=== PATIENT | male | born 1940 | race Caucasian/White ===

== ENCOUNTER → 2016-11-11 | Outpatient (CLI) | payer MEDICARE, OTHER ==
[~2016-11-11] MED LIST: ALDACTONE50 MG PO; AMPICILLIN500 MG PO; ASPIRIN E.C. 8181 MG PEG; ASPIRIN E.C. 8181 MG PO; ATIVAN0.5 MG PO; CARDENE 30MG CA30 M1 PEG; CARDENE 30MG CA30 MG PO; CARDENE PO; CARDIZEM CD 24240 MG PO; CELEXA40 MG PO; COLACE 100100 MG/CAP PO; DEBROX OT; DIFLUCAN100 MG PO; DULCOLAX10 MG RC; DYNAPEN500 MG PO; EXELON PAT4.6 MG/24 TD; FLAGYL500 MG PEG; FLOMAX 0.40.4 MG/CAP PO; KEPPRA100 MG/ML PEG; KEPPRA500 MG PO; LASIX 20MG TABL20 MG PO; LEVAQUIN 250MG250 MG PEG; LISINOPRIL40 MG PO; LOPRESSOR100 MG PEG; LOVENOX40 MG/0.4 SC; MAG-OX 400400 MG/TAB PO; METOPROLOL100 MG PO; METOPROLOL50 MG PO; MILK OF MA400 MG/51 PO; MIRALAX 17GM PK1 PKT PO; MULTI VITAMINS1 TAB PO; MULTI-VITAMIN1 CTB PO; MYLANTA 150 ML150 M1 PO; NEXIUM 40MG40 MG PEG; NEXIUM ORA40 MG/Pack PEG; NO HOME MEDICATIONS; NORCO 325 MG-51 TAB PO; PRILOSEC 20MG20 MG PO; PROSCAR 5MG5 MG PO; PYRIDIUM 100MG100 MG PO; RISPERDAL 0.20.25 MG PO; SILVADENE 400G400 GM TP; THERAGRAN1 TA1 PO; TOPROL XL 50MG50 MG PO; TYLENOL 325MG325 MG PO; TYLENOL ELIX32 MG/ML PO; UNABLE; VITAMIN D1000 IU PO; ZESTRIL20 MG PEG; [UNRECOGNIZED DRUG - OTHER]
[2016-11-11 10:03] LABS: CALCIUM 9.4 mg/dL (8.4-10.2); CREATININE, serum 1.32 mg/dL (0.66-1.25); POTASSIUM 4.2 mmol/L (3.4-5.0)
== END ==
LOC: COL.VAS 08:51
PROVIDERS: Internal Medicine
DX: I31.3 Pericardial effusion (noninflammatory) (principal); R94.39 Abnormal result of other cardiovascular function study; R09.02 Hypoxemia

== ENCOUNTER 2019-03-12 11:27 | Day surgery (SDC) | payer MEDICARE ==
[~2019-03-12] VITALS: Ht 172.7 cm; Wt 99.3 kg
[2019-03-12 12:29] VITALS: BP 158/78; PULSE 81; TEMP 98.4
[2019-03-12] MEDS ORDERED: CARTIA XT240 MG PO (12:47)
[2019-03-12] MEDS ORDERED: LASIX 20MG TABL20 MG PO (12:48)
[2019-03-12] MEDS ORDERED: ZYLOPRIM 300MG300 MG PO (12:49)
--- NOTE | 2019-03-12 12:50 | NUR ---
TO RM AT 8 AT 1153- CALL LIGHT IN REACH AT BEDSIDE
[2019-03-12 16:49] VITALS: BP 139/59; PULSE 88; TEMP 97.2
--- NOTE | 2019-03-12 18:09 | NUR ---
Patient agitated, standing at bedside nude attempting to pull cárdenas catheter out. Attempted to re inforce to patient need for catheter and need to remain in hospital. Patient refuses, states he is leaving and to take catheter out. Explained need for cárdenas to remain. Patient states "he promised me he wouldn't leave a catheter in and he did, he lied to me, I'm leaving". Dr Green notified of above, as well as Dr Griffiths. Cárdenas catheter and INT discontinued. Patient left [facility] at 1810 with .
[2019-03-12 18:14] VITALS: BP 1139/59; PULSE 87; TEMP 97.5
== END 2019-03-12 18:10 | disposition left against medical advice (07) ==
LOC: SDCO 11:27
DX: N40.1 Benign prostatic hyperplasia with lower urinary tract symptoms (principal); N39.498 Other specified urinary incontinence; R35.0 Frequency of micturition; R35.1 Nocturia; R33.8 Other retention of urine; R09.02 Hypoxemia; G47.33 Obstructive sleep apnea (adult) (pediatric); I10 Essential (primary) hypertension; K21.9 Gastro-esophageal reflux disease without esophagitis; Z86.73 Personal history of transient ischemic attack (TIA), and cerebral infarction without residual deficits; Z85.828 Personal history of other malignant neoplasm of skin; Z98.52 Vasectomy status; Z88.2 Allergy status to sulfonamides; Z83.3 Family history of diabetes mellitus; Z82.49 Family history of ischemic heart disease and other diseases of the circulatory system; Z86.718 Personal history of other venous thrombosis and embolism; M10.9 Gout, unspecified; J90 Pleural effusion, not elsewhere classified; I47.1 Supraventricular tachycardia; Z82.61 Family history of arthritis; Z79.82 Long term (current) use of aspirin; F03.90 Unspecified dementia, unspecified severity, without behavioral disturbance, psychotic disturbance, mood disturbance, and anxiety; M19.90 Unspecified osteoarthritis, unspecified site
CPT/HCPCS: 99223; C1769; J0690; J2175; J2704; J3010; J7030

== ENCOUNTER → 2020-11-28 | Outpatient (CLI) | payer MEDICARE ==
[~2020-11-28] MED LIST changes: +ASPIRIN 81M81 MG/TA2 PO; +CARTIA XT240 MG PO; +DIAMOX 250MG250 MG PO; +ZYLOPRIM 300MG300 MG PO
[2020-11-28 12:03] LABS: ALBUMIN 3.7 gm/dL (3.5-5.0); BILIRUBIN,TOTAL 0.9 mg/dL (0.0-1.0); CALCIUM 8.8 mg/dL (8.4-10.2); CREATININE, serum 2.17 (0.66-1.25); TOTAL PROTEIN 7.1 gm/dL (6.4-8.2)
[2020-11-28 12:11] LABS: BASO # 0.1 (0.0-0.2); BASO % 0.5 % (0.0-2.0); EOS # 0.1 (0.0-0.7); GRAN # 9.1 (1.4-6.5); GRAN % 80.3 % (42.2-75.2); HEMATOCRIT 45.5 % (42.0-52.0); HEMOGLOBIN 15.4 g/dl (13.5-18.0); LYMPH # 1.1 (1.2-3.4); LYMPH % 9.2 % (20.0-51.0); MEAN CELL VOLUME 96 fl (80.0-100.0); MEAN CORPUSCULAR HEMOGLOBIN 33 pg (27.0-31.0); MEAN CORPUSCULAR HGB CONC 34 g/dl (33.0-37.0); MEAN PLATELET VOLUME 9.7 fl (7.4-10.4); MONO % 8.6 % (1.7-9.3); PLATELET COUNT 216 K/mm3 (130-400); RED BLOOD COUNT 4.74 M/mm3 (4.20-5.60); REDCELL DISTRIBUTION WIDTH-CV 13.2 % (11.5-14.5)
[2020-11-28 12:14] LABS: TROPONIN-I 0.014 ng/mL (0.000-0.035)
[2020-11-28 12:20] LABS: PH 7 (5-8); SQUAMOUS EPITHELIAL 0-2 /hpf; URINE APPEARANCE Turbid; URINE BACTERIA Moderate /hpf; URINE BILIRUBIN Negative (NEGATIVE); URINE BLOOD 1+ (NEGATIVE); URINE COLOR Yellow; URINE GLUCOSE Negative (NEGATIVE); URINE KETONE Negative (NEGATIVE); URINE LEUKOCYTE ESTERASE 3+ (NEGATIVE); URINE NITRATE Negative (NEGATIVE); URINE PROTEIN(semi-quant) 2+ (NEGATIVE); URINE UROBILINOGEN Negative (NEGATIVE)
[2020-11-29 13:45] LABS: COLLECTION METHOD CLEAN CATCH
== END ==
LOC: COL.RAD 10:36
PROVIDERS: Nurse Practitioner Family
DX: I51.7 Cardiomegaly (principal)

== ENCOUNTER → 2021-01-04 | Outpatient (CLI) | payer MEDICARE ==
[~2021-01-04] MED LIST changes: +LASIX 40MG TABL40 MG PO; +ONE-A-DAY ESSE1 EACH PO; +VITAMIN D31000 I1 PO
== END ==
LOC: COL.VAS 12:14
DX: N18.32 Chronic kidney disease, stage 3b (principal); N40.0 Benign prostatic hyperplasia without lower urinary tract symptoms; I31.3 Pericardial effusion (noninflammatory); I36.1 Nonrheumatic tricuspid (valve) insufficiency; I50.9 Heart failure, unspecified

== ENCOUNTER 2021-02-21 15:30 | Outpatient (RCR) | payer MEDICARE ==
[~2021-02-21 15:30] MED LIST changes: -LASIX 40MG TABL40 MG PO; -ONE-A-DAY ESSE1 EACH PO; -VITAMIN D31000 I1 PO
[2021-03-01] MEDS ORDERED: ONE-A-DAY ESSE1 EACH PO (14:17)
[2021-03-01] MEDS ORDERED: VITAMIN D31000 I1 PO (14:18)
[2021-03-01] MEDS ORDERED: LASIX 40MG TABL40 MG PO (14:19)
== END 2021-03-05 16:13 | disposition home or self-care (01) ==
LOC: MKS.ESL.PT 15:30
DX: I61.9 Nontraumatic intracerebral hemorrhage, unspecified (principal); I89.0 Lymphedema, not elsewhere classified

== ENCOUNTER 2021-03-01 13:19 | Day surgery (SDC) | payer MEDICARE ==
[~2021-03-01] VITALS: Ht 170.2 cm; Wt 88.7 kg
[2021-03-01] VITALS (9 sets, daily range): BP systolic 132–185; BP diastolic 50–76; PULSE 71–99; TEMP 97.4–98.3
[2021-03-01] MEDS ORDERED: ONE-A-DAY ESSE1 EACH PO (14:17)
[2021-03-01] MEDS ORDERED: VITAMIN D31000 I1 PO (14:18)
[2021-03-01] MEDS ORDERED: LASIX 40MG TABL40 MG PO (14:19)
--- NOTE | 2021-03-01 14:21 | NUR ---
TO RM 7 AT 1326- CALL LIGHT IN REACH AT BEDSIDE.
--- NOTE | 2021-03-01 15:34 | NUR ---
WENT BACK TO WORK PLACED PILLOW UNDER PATIENT CALVES AND ELEVATED FOOT OF BED
--- NOTE | 2021-03-01 17:30 | NUR ---
Patient up from OR. Leslee is slow but answers questions appropriately. R weakness noted. Machuca to leg bag with blood tinged urine present. Edema to BLE +2 pitting. Post op fluids infusing to left forarm IV. Warm blankets provided at this time. Patient on 2L o2 via NC Oxygen between 88-92% at this time. Encouraged cough and deep breathing. Oxygen increases to 92 % with deep breath. Scrotal edema noted. Denies additional needs at this time.
--- NOTE | 2021-03-01 18:26 | NUR ---
Will report off to operations supervisor 2nd shift.
--- NOTE | 2021-03-01 20:00 | NUR ---
Patient is currently on 3 L of oxygen via nasal cannula and is between 90-94%. Called Dr. Brink about patient staying the night and slowly weaning him off of oxygen. Dr. Brink is okay with this. Called patient's to give her an update.
[2021-03-02 03:24] VITALS: BP 143/51; PULSE 61; TEMP 98.3
[2021-03-02 08:26] VITALS: BP 121/65; PULSE 93; TEMP 98
--- NOTE | 2021-03-02 12:22 | NUR ---
Patient alert and oriented, answers questions appropriately with much prompting. See assessment. Machuca catheter in place, patent and draining clear yellow urine. No c/o at this time.
--- NOTE | 2021-03-02 14:57 | NUR ---
Discharge instructions reviewed with spouse via telephone. Patient discharged with cárdenas catheter in place. Discharged via wheelchair to auto/home with spouse at 1350.
== END 2021-03-02 13:50 | disposition home or self-care (01) ==
LOC: SDCO 13:19 → SURG 17:35 → SDCO 03-02 13:50
DX: N40.0 Benign prostatic hyperplasia without lower urinary tract symptoms (principal); I12.9 Hypertensive chronic kidney disease with stage 1 through stage 4 chronic kidney disease, or unspecified chronic kidney disease; N18.9 Chronic kidney disease, unspecified; N31.2 Flaccid neuropathic bladder, not elsewhere classified; R97.20 Elevated prostate specific antigen [PSA]; I69.320 Aphasia following cerebral infarction; I69.351 Hemiplegia and hemiparesis following cerebral infarction affecting right dominant side; R82.81 Pyuria; R41.82 Altered mental status, unspecified; G47.33 Obstructive sleep apnea (adult) (pediatric); K21.9 Gastro-esophageal reflux disease without esophagitis; M19.90 Unspecified osteoarthritis, unspecified site; F03.90 Unspecified dementia, unspecified severity, without behavioral disturbance, psychotic disturbance, mood disturbance, and anxiety; Z85.828 Personal history of other malignant neoplasm of skin; Z20.822 Contact with and (suspected) exposure to COVID-19; Z90.89 Acquired absence of other organs; Z98.52 Vasectomy status; Z79.899 Other long term (current) drug therapy; Z79.82 Long term (current) use of aspirin; Z88.2 Allergy status to sulfonamides
CPT/HCPCS: OP; C1769; J0690; J1100; J2405; J2704; J3010; J7030

== ENCOUNTER 2021-03-02 19:55 | Inpatient (IN) | payer MEDICARE ==
[~2021-03-02] VITALS: Ht 170.2 cm; Wt 82.9 kg
[~2021-03-02 19:55] MED LIST changes: +LASIX 40MG TABL40 MG PO; +ONE-A-DAY ESSE1 EACH PO; +VITAMIN D31000 I1 PO
[2021-03-02 20:54] LABS: COLLECTION METHOD CATHETER
[2021-03-02 21:00] LABS: BASO # 0.1 (0.0-0.2); BASO % 0.9 % (0.0-2.0); EOS # 0.4 (0.0-0.7); EOS % 4.7 % (0-4.0); GRAN # 6.9 (1.4-6.5); GRAN % 75.9 % (42.2-75.2); HEMATOCRIT 38.7 % (42.0-52.0); HEMOGLOBIN 12.5 g/dl (13.5-18.0); LYMPH % 10.9 % (20.0-51.0); MEAN CELL VOLUME 98 fl (80.0-100.0); MEAN CORPUSCULAR HEMOGLOBIN 32 pg (27.0-31.0); MEAN CORPUSCULAR HGB CONC 32 g/dl (33.0-37.0); MEAN PLATELET VOLUME 11.2 fl (7.4-10.4); MONO # 0.7 (0.1-0.6); MONO % 7.3 % (1.7-9.3); PLATELET COUNT 122 K/mm3 (130-400); RED BLOOD COUNT 3.94 M/mm3 (4.20-5.60); REDCELL DISTRIBUTION WIDTH-CV 13.8 % (11.5-14.5)
[2021-03-02 21:06] LABS: PH 6 (5-8); URINE APPEARANCE Turbid; URINE BACTERIA None Seen /hpf; URINE BILIRUBIN Negative (NEGATIVE); URINE BLOOD 3+ (NEGATIVE); URINE COLOR Amber; URINE GLUCOSE Negative (NEGATIVE); URINE KETONE Negative (NEGATIVE); URINE LEUKOCYTE ESTERASE 2+ (NEGATIVE); URINE NITRATE Negative (NEGATIVE); URINE PROTEIN(semi-quant) 2+ (NEGATIVE); URINE RBC >50 /hpf; URINE UROBILINOGEN Negative (NEGATIVE)
[2021-03-02 21:44] LABS: ALBUMIN 3.4 gm/dL (3.5-5.0); BILIRUBIN,TOTAL 0.3 mg/dL (0.0-1.0); CALCIUM 8.4 mg/dL (8.4-10.2); CREATININE, serum 4.28 (0.66-1.25); POTASSIUM 4.4 mmol/L (3.4-5.0); TOTAL PROTEIN 6.6 gm/dL (6.4-8.2)
[2021-03-02 21:55] LABS: TROPONIN-I 0.014 ng/mL (0.000-0.035)
[2021-03-02 22:56] VITALS: BP 158/80; PULSE 111; TEMP 98.4
[2021-03-03 00:24] LABS: ARTERIAL BLD GAS O2 SATURATION 96.7 % (92-100); ARTERIAL BLD GAS TCO2 CT 28.9; ARTERIAL BLOOD GAS BASE EXCESS 1.3 (-2-2); ARTERIAL BLOOD GAS HCO3 27.4 meq/L (22-26); ARTERIAL BLOOD GAS PCO2 49.8 mmHg (35-45); ARTERIAL BLOOD GAS PO2 88.9 mmHg (80-100); ARTERIAL BLOOD GAS pH 7.36 (7.35-7.45)
[2021-03-03 06:15] VITALS: BP 165/89; PULSE 98; TEMP 97.9
[2021-03-03 06:35] LABS: BASO # 0.1 (0.0-0.2); BASO % 0.8 % (0.0-2.0); EOS # 0.4 (0.0-0.7); GRAN # 5.8 (1.4-6.5); GRAN % 68.8 % (42.2-75.2); HEMOGLOBIN 11.1 g/dl (13.5-18.0); LYMPH # 1.4 (1.2-3.4); LYMPH % 15.9 % (20.0-51.0); MEAN CELL VOLUME 98 fl (80.0-100.0); MEAN CORPUSCULAR HEMOGLOBIN 31 pg (27.0-31.0); MEAN CORPUSCULAR HGB CONC 32 g/dl (33.0-37.0); MEAN PLATELET VOLUME 10.6 fl (7.4-10.4); MONO # 0.8 (0.1-0.6); MONO % 9.1 % (1.7-9.3); PLATELET COUNT 122 K/mm3 (130-400); RED BLOOD COUNT 3.57 M/mm3 (4.20-5.60); REDCELL DISTRIBUTION WIDTH-CV 13.6 % (11.5-14.5)
[2021-03-03 06:40] LABS: HEMATOCRIT 34.8 % (42.0-52.0)
[2021-03-03 06:50] LABS: CALCIUM 8.2 mg/dL (8.4-10.2); CREATININE, serum 3.71 (0.66-1.25); PHOSPHOROUS 5.6 mg/dL (2.5-4.5); POTASSIUM 3.8 mmol/L (3.4-5.0)
[2021-03-03 07:23] VITALS: BP 174/81; PULSE 97; TEMP 97.9
[2021-03-03 11:43] VITALS: BP 143/71; PULSE 84; TEMP 98.3
[2021-03-03 16:18] VITALS: BP 134/61; PULSE 90; TEMP 97.4
[2021-03-03 19:56] VITALS: BP 150/70; PULSE 99; TEMP 98.3
[2021-03-04 00:16] VITALS: BP 159/72; PULSE 100; TEMP 98
[2021-03-04 05:06] VITALS: BP 145/61; PULSE 92; TEMP 98.4
[2021-03-04 06:57] LABS: BASO # 0.1 (0.0-0.2); BASO % 0.7 % (0.0-2.0); EOS # 0.4 (0.0-0.7); EOS % 4.5 % (0-4.0); GRAN # 7.1 (1.4-6.5); GRAN % 73.7 % (42.2-75.2); HEMOGLOBIN 11.6 g/dl (13.5-18.0); LYMPH # 1.2 (1.2-3.4); LYMPH % 12.1 % (20.0-51.0); MEAN CELL VOLUME 94 fl (80.0-100.0); MEAN CORPUSCULAR HEMOGLOBIN 31 pg (27.0-31.0); MEAN CORPUSCULAR HGB CONC 33 g/dl (33.0-37.0); MEAN PLATELET VOLUME 10.4 fl (7.4-10.4); MONO # 0.9 (0.1-0.6); MONO % 8.8 % (1.7-9.3); PLATELET COUNT 149 K/mm3 (130-400); REDCELL DISTRIBUTION WIDTH-CV 13.3 % (11.5-14.5)
[2021-03-04 07:01] LABS: HEMATOCRIT 34.9 % (42.0-52.0)
[2021-03-04 07:02] VITALS: BP 164/81; PULSE 92; TEMP 97.7
[2021-03-04 07:03] LABS: CALCIUM 8.2 mg/dL (8.4-10.2); CREATININE, serum 2.77 (0.66-1.25); MAGNESIUM 2.2 mg/dL (1.6-2.3); POTASSIUM 3.8 mmol/L (3.4-5.0)
[2021-03-04 10:22] LABS: COLLECTION METHOD CATHETER
[2021-03-04 10:32] LABS: MUCOUS Present /lpf; PH 5 (5-8); SQUAMOUS EPITHELIAL None Seen /hpf; URINE APPEARANCE Hazy; URINE BACTERIA None Seen /hpf; URINE BILIRUBIN Negative (NEGATIVE); URINE BLOOD 2+ (NEGATIVE); URINE COLOR Yellow; URINE GLUCOSE Negative (NEGATIVE); URINE KETONE Negative (NEGATIVE); URINE LEUKOCYTE ESTERASE 2+ (NEGATIVE); URINE NITRATE Negative (NEGATIVE); URINE PROTEIN(semi-quant) 2+ (NEGATIVE); URINE RBC 20-50 /hpf; URINE UROBILINOGEN Negative (NEGATIVE)
[2021-03-04 11:27] VITALS: BP 158/72; PULSE 81; TEMP 97.5
[2021-03-04 16:25] VITALS: BP 172/77; PULSE 82; TEMP 97.9
[2021-03-04 20:28] VITALS: BP 167/79; PULSE 93; TEMP 98.1
[2021-03-05 01:44] VITALS: BP 165/70; PULSE 91; TEMP 97.5
[2021-03-05 05:15] VITALS: BP 162/70; PULSE 85; TEMP 98.6
[2021-03-05 09:29] LABS: BASO % 0.4 % (0.0-2.0); EOS # 0.4 (0.0-0.7); EOS % 4.7 % (0-4.0); GRAN # 6.9 (1.4-6.5); GRAN % 75.6 % (42.2-75.2); HEMATOCRIT 38.1 % (42.0-52.0); HEMOGLOBIN 12.8 g/dl (13.5-18.0); LYMPH % 11.4 % (20.0-51.0); MEAN CELL VOLUME 95 fl (80.0-100.0); MEAN CORPUSCULAR HEMOGLOBIN 32 pg (27.0-31.0); MEAN CORPUSCULAR HGB CONC 34 g/dl (33.0-37.0); MEAN PLATELET VOLUME 10.6 fl (7.4-10.4); MONO # 0.7 (0.1-0.6); MONO % 7.7 % (1.7-9.3); PLATELET COUNT 162 K/mm3 (130-400); RED BLOOD COUNT 4.01 M/mm3 (4.20-5.60); REDCELL DISTRIBUTION WIDTH-CV 13.2 % (11.5-14.5)
[2021-03-05 09:47] LABS: CALCIUM 8.4 mg/dL (8.4-10.2); CREATININE, serum 2.25 (0.66-1.25); MAGNESIUM 2.2 mg/dL (1.6-2.3); POTASSIUM 3.6 mmol/L (3.4-5.0)
[2021-03-05 11:35] VITALS: BP 163/81; PULSE 96; TEMP 98.6
[2021-03-05 16:32] VITALS: BP 182/97; PULSE 100; TEMP 97.9
[2021-03-05 19:50] VITALS: BP 203/99; PULSE 102; TEMP 98.3
[2021-03-06] VITALS (8 sets, daily range): BP systolic 143–199; BP diastolic 62–125; PULSE 94–129; TEMP 97.8–98.9
[2021-03-06 07:40] LABS: CALCIUM 8.7 mg/dL (8.4-10.2); CREATININE, serum 2.02 (0.66-1.25); MAGNESIUM 2.2 mg/dL (1.6-2.3); POTASSIUM 3.9 mmol/L (3.4-5.0)
[2021-03-07] VITALS (8 sets, daily range): BP systolic 148–183; BP diastolic 80–113; PULSE 105–130; TEMP 97.7–99.5
[2021-03-07 01:43] LABS: ARTERIAL BLD GAS O2 SATURATION 93.5 % (92-100); ARTERIAL BLD GAS TCO2 CT 21.8; ARTERIAL BLOOD GAS BASE EXCESS -3.4 (-2-2); ARTERIAL BLOOD GAS HCO3 20.7 meq/L (22-26); ARTERIAL BLOOD GAS PCO2 34.5 mmHg (35-45); ARTERIAL BLOOD GAS PO2 67.2 mmHg (80-100)
[2021-03-07 02:51] LABS: BASO # 0.1 (0.0-0.2); BASO % 0.5 % (0.0-2.0); EOS % 0.3 % (0-4.0); GRAN # 11.6 (1.4-6.5); GRAN % 86.9 % (42.2-75.2); HEMATOCRIT 39.4 % (42.0-52.0); HEMOGLOBIN 13.1 g/dl (13.5-18.0); LYMPH # 0.6 (1.2-3.4); LYMPH % 4.8 % (20.0-51.0); MEAN CELL VOLUME 93 fl (80.0-100.0); MEAN CORPUSCULAR HEMOGLOBIN 31 pg (27.0-31.0); MEAN CORPUSCULAR HGB CONC 33 g/dl (33.0-37.0); MEAN PLATELET VOLUME 10.1 fl (7.4-10.4); MONO # 0.9 (0.1-0.6); PLATELET COUNT 181 K/mm3 (130-400); RED BLOOD COUNT 4.23 M/mm3 (4.20-5.60); REDCELL DISTRIBUTION WIDTH-CV 13.6 % (11.5-14.5)
[2021-03-07 03:03] LABS: ALBUMIN 3.5 gm/dL (3.5-5.0); CALCIUM 8.4 mg/dL (8.4-10.2); CREATININE, serum 2.24 (0.66-1.25); PHOSPHOROUS 3.9 mg/dL (2.5-4.5); POTASSIUM 4.1 mmol/L (3.4-5.0)
[2021-03-07 05:33] LABS: ARTERIAL BLD GAS O2 SATURATION 96.6 % (92-100); ARTERIAL BLD GAS TCO2 CT 22.4; ARTERIAL BLOOD GAS BASE EXCESS -4.2 (-2-2); ARTERIAL BLOOD GAS HCO3 21.2 meq/L (22-26); ARTERIAL BLOOD GAS PO2 85.5 mmHg (80-100); ARTERIAL BLOOD GAS pH 7.34 (7.35-7.45)
[2021-03-07 14:59] LABS: GLUCOSE,CSF 87 mg/dL (40-70); TOTAL PROTEIN,CSF 72 mg/dL (15-45)
[2021-03-07 15:50] LABS: CSF COLOR COLORLESS
[2021-03-07 15:51] LABS: CSF APPEARANCE CLEAR; CSF MONONUCLEAR 8 % (70-100); CSF POLYMORPHONUCLEAR 4 % (0-6); CSF RBC 181 /mm3 (0-0)
[2021-03-07 23:01] LABS: PARTIAL THROMBOPLASTIN TIME 26.5 SECONDS (26.0-37.0)
[2021-03-08 00:52] VITALS: BP 124/86; PULSE 108; TEMP 98.8
[2021-03-08 05:57] VITALS: BP 170/96; PULSE 101; TEMP 99.3
[2021-03-08 06:43] LABS: BASO # 0.1 (0.0-0.2); BASO % 0.6 % (0.0-2.0); EOS # 0.2 (0.0-0.7); EOS % 1.4 % (0-4.0); GRAN # 14.3 (1.4-6.5); GRAN % 84.5 % (42.2-75.2); HEMATOCRIT 39.3 % (42.0-52.0); LYMPH # 1.3 (1.2-3.4); LYMPH % 7.4 % (20.0-51.0); MEAN CELL VOLUME 96 fl (80.0-100.0); MEAN CORPUSCULAR HEMOGLOBIN 32 pg (27.0-31.0); MEAN CORPUSCULAR HGB CONC 33 g/dl (33.0-37.0); MEAN PLATELET VOLUME 10.8 fl (7.4-10.4); MONO % 5.8 % (1.7-9.3); PLATELET COUNT 210 K/mm3 (130-400); RED BLOOD COUNT 4.09 M/mm3 (4.20-5.60); REDCELL DISTRIBUTION WIDTH-CV 13.9 % (11.5-14.5)
[2021-03-08 06:52] LABS: CALCIUM 8.6 mg/dL (8.4-10.2); CREATININE, serum 3.08 (0.66-1.25); POTASSIUM 4.7 mmol/L (3.4-5.0)
[2021-03-08 08:00] VITALS: BP 172/94; PULSE 118; TEMP 98.2
== END 2021-03-08 14:30 | disposition expired | DRG 682 ==
LOC: COL.ER 19:55 → SURG 22:26
PROVIDERS: Emergency Medicine; Internal Medicine Nephrology; Physician Assistant; Psychiatry & Neurology Neurology; Student in an Organized Health Care Education/Training Program; ADMIT Internal Medicine
PROC: 5A09357 Assistance with Respiratory Ventilation, Less than 24 Consecutive Hours, Continuous Positive Airway Pressure (ICD-10-PCS; 2021-03-03)
PROC: 009U3ZX Drainage of Spinal Canal, Percutaneous Approach, Diagnostic (ICD-10-PCS; principal; 2021-03-07)
PROC: 5A09457 Assistance with Respiratory Ventilation, 24-96 Consecutive Hours, Continuous Positive Airway Pressure (ICD-10-PCS; 2021-03-07)
DX: N17.9 Acute kidney failure, unspecified (principal); G93.41 Metabolic encephalopathy; J96.21 Acute and chronic respiratory failure with hypoxia; I13.0 Hypertensive heart and chronic kidney disease with heart failure and stage 1 through stage 4 chronic kidney disease, or unspecified chronic kidney disease; A87.9 Viral meningitis, unspecified; I31.3 Pericardial effusion (noninflammatory); I50.32 Chronic diastolic (congestive) heart failure; N13.8 Other obstructive and reflux uropathy; N39.0 Urinary tract infection, site not specified; Z51.5 Encounter for palliative care; Z66 Do not resuscitate; D69.6 Thrombocytopenia, unspecified; N18.4 Chronic kidney disease, stage 4 (severe); D64.9 Anemia, unspecified; G47.33 Obstructive sleep apnea (adult) (pediatric); E86.0 Dehydration; B02.9 Zoster without complications; I69.322 Dysarthria following cerebral infarction; I87.8 Other specified disorders of veins; N40.1 Benign prostatic hyperplasia with lower urinary tract symptoms; N36.5 Urethral false passage; R62.7 Adult failure to thrive; N31.9 Neuromuscular dysfunction of bladder, unspecified; R00.0 Tachycardia, unspecified; R53.81 Other malaise; R79.1 Abnormal coagulation profile; R80.9 Proteinuria, unspecified; R41.0 Disorientation, unspecified; R45.1 Restlessness and agitation; R53.1 Weakness; R60.0 Localized edema; M10.9 Gout, unspecified; Z86.72 Personal history of thrombophlebitis; Z86.718 Personal history of other venous thrombosis and embolism; Z79.82 Long term (current) use of aspirin; Z88.2 Allergy status to sulfonamides
CPT/HCPCS: OP; 99223-AI; 99233-AI; A9540; A9567; C1769; J0133; J0360; J0690; J0692; J0696; J1100; J1630; J1644; J2060; J2270; J2405; J2704; J3010; J3480; J7030